=== PATIENT | female | born 1955 | race Caucasian/White ===

== ENCOUNTER 2018-04-30 12:43 | Day surgery (SDC) | payer MEDICARE ==
[~2018-04-30] VITALS: Ht 160 cm; Wt 101.4 kg
[~2018-04-30 12:43] MED LIST: CHOL10002; Esgic Tablet1 EACH; Inderal40 MG; MAGOXI400
--- NOTE | 2018-04-30 15:51 | NUR ---
04/30/18 1551 Jim Blank LATE ENTRY: PT BP DROPPED TO 82 SYSTOLIC WITH [address] KWOK NOT[address] DR[address] TAVAREZ ORDERS TO CONTINUE SEDATION WITH FENTANYL & VERSED. PT AIRWAY/GAG REFLEX VERY SENSTIVE, UNABLE TO START PROCEDURE. DR. QUIROGA CONSULTED. DR. QUIROGA AGREED TO PROVIDE SEDATION TO CONTINUE. PT PROVIDED CONSENT. DR. QUIROGA TOOK CASE OVER. PT VSS T/O THE REST OF THE PROCEDURE.
== END 2018-04-30 15:37 | disposition home or self-care (01) ==
LOC: ORSCSDS 12:43
PROVIDERS: Internal Medicine Gastroenterology
PROC: 0DB58ZX Excision of Esophagus, Via Natural or Artificial Opening Endoscopic, Diagnostic (ICD-10-PCS; principal; 2018-04-30 14:15)
PROC: 0D758ZZ Dilation of Esophagus, Via Natural or Artificial Opening Endoscopic (ICD-10-PCS; principal; 2018-04-30 14:15)
DX: R13.14 Dysphagia, pharyngoesophageal phase (principal); K21.9 Gastro-esophageal reflux disease without esophagitis; I10 Essential (primary) hypertension; G47.33 Obstructive sleep apnea (adult) (pediatric); E66.01 Morbid (severe) obesity due to excess calories; Z68.41 Body mass index [BMI] 40.0-44.9, adult; Z79.899 Other long term (current) drug therapy
CPT/HCPCS: 88305; J2250; J3010; J7120

== ENCOUNTER 2023-02-13 11:13 | Day surgery (SDC) | payer MEDICARE ==
[~2023-02-13] VITALS: Ht 160 cm; Wt 95.3 kg
--- NOTE | 2023-02-13 11:29 | NUR ---
NAUSEA/VOMITING FOLLOWING ANETHESIA
[2023-02-13] MEDS ORDERED: [UNRECOGNIZED DRUG - CODE] PO (11:32)
[2023-02-13] MEDS ORDERED: BUTALB-ACETAMI1 EAC5 PO (11:33)
--- NOTE | 2023-02-13 12:10 | NUR ---
02/13/23 1210 Christin Mccray TIME OUT TAKEN TO VERIFY CORRECT PT, SITE, PROCEEDURE AND ALLERGIES. PT ELECTED TO PROCEED WITH THE BLOCK PRIOR TO PROCEEDURE. RELAXING MEDICATION PROVIDED BY DR. RAMOS. VS STABLE THROUGHOUT. PT TOLERATED WELL
--- NOTE | 2023-02-13 12:38 | NUR ---
02/13/23 1238 Jim Blank ROPIVACAINE 0.5% 30ML MIXED AND VERIFIED W/EPI 0.15 ML. (1MG/ML) PER ORDER TO MAKE ROPIVACAINE 0.5% 1:200,000 FOR INJECTION AT OPSITE BY DR. SELF
[2023-02-13 13:29] VITALS: BP 145/68
--- NOTE | 2023-02-13 14:18 | NUR ---
02/13/23 1418 Oneyda Farr PATIENT UP TO BATHROOM PRIOR TO DISCHARGING HOME. VOIDED WITHOUT ANY DIFFICULTIES. PT DENIED PAIN OR NAUSEA THROUGHOUT RECOVERY. IMMEDIATELY PRIOR TO DISCHARGE STATED SHE HAS HAD A HEADACHE. HER AND REPORT THAT SHE IS SEEING A NEUROLOGIST FOR HER HEADACHES. NORMALLY TAKES TYLENOL FOR THE HEADACHES. ADVISED PATIENT THAT THE PAIN RX SENT IN BY DR SELF ALSO HAS TYLENOL IN IT SO TO MAKE SURE TO TAKE THE AMOUNT OF TYLENOL IN THE PAIN PILL INTO CONSIDERATION IF PLANNING TO TAKE TYLENOL FOR A HEADACHE. PT VERBALIZED UNDERSTANDING.
== END 2023-02-13 14:12 | disposition home or self-care (01) ==
LOC: ORSCSDS 11:13
PROVIDERS: Podiatrist Foot & Ankle Surgery
PROC: 0L8N0ZZ Division of Right Lower Leg Tendon, Open Approach (ICD-10-PCS; principal; 2023-02-13 12:45)
PROC: 0QBL0ZZ Excision of Right Tarsal, Open Approach (ICD-10-PCS; principal; 2023-02-13 12:45)
DX: M76.61 Achilles tendinitis, right leg (principal); I10 Essential (primary) hypertension; E11.9 Type 2 diabetes mellitus without complications; G47.33 Obstructive sleep apnea (adult) (pediatric); E66.9 Obesity, unspecified; Z68.37 Body mass index [BMI] 37.0-37.9, adult; Z79.899 Other long term (current) drug therapy
CPT/HCPCS: C1713; J0171; J1100; J2250; J2405; J2704; J2795; J3010

== ENCOUNTER 2023-04-10 12:17 | Day surgery (SDC) | payer MEDICARE ==
[~2023-04-10] VITALS: Ht 160 cm; Wt 95.6 kg
[~2023-04-10 12:17] MED LIST changes: +BUTALB-ACETAMI1 EAC5 PO; +[UNRECOGNIZED DRUG - CODE] PO
[2023-04-10 15:28] VITALS: BP 129/70
--- NOTE | 2023-04-10 15:30 | NUR ---
04/10/23 1530 Bre Gambino IV DC'D. CATH INTACT. PT TOLERATED WELL. GAUZE/COBAN IN PLACE
== END 2023-04-10 15:30 | disposition home or self-care (01) ==
LOC: ORSCSDS 12:17
PROVIDERS: Internal Medicine Gastroenterology
PROC: 0DBK8ZX Excision of Ascending Colon, Via Natural or Artificial Opening Endoscopic, Diagnostic (ICD-10-PCS; principal; 2023-04-10 13:45)
DX: Z12.11 Encounter for screening for malignant neoplasm of colon (principal); Z86.010 Personal history of colon polyps; D12.2 Benign neoplasm of ascending colon; K64.8 Other hemorrhoids; I10 Essential (primary) hypertension; K21.9 Gastro-esophageal reflux disease without esophagitis; K57.30 Diverticulosis of large intestine without perforation or abscess without bleeding; Z87.891 Personal history of nicotine dependence; Z68.37 Body mass index [BMI] 37.0-37.9, adult; Z79.899 Other long term (current) drug therapy
CPT/HCPCS: 88305; J2405; J2704; J7120

== ENCOUNTER 2024-02-06 10:37 | Emergency (ER) | payer MEDICARE ==
[~2024-02-06] VITALS: Ht 160 cm; Wt 99.8 kg
[2024-02-06] MEDS ORDERED: OLME5TAB PO (11:38)
[2024-02-06] MEDS ORDERED: PRED20 (11:39)
[2024-02-06 11:40] LABS: BASOPHILS ABSOLUTE AUTO 0.02 K/mm3 (0.00-0.23); BASOPHILS PERCENT AUTO 0 % (0-2); EOSINOPHILS ABSOLUTE AUTO 0.02 K/mm3 (0.00-0.68); EOSINOPHILS PERCENT AUTO 0 % (0-6); Hematocrit 44.2 % (33.0-51.0); Hemoglobin 14.8 g/dL (11.5-16.0); IMMATURE GRAN ABSOLUTE AUTO 0.05 K/mm3 (0.00-0.10); IMMATURE GRAN PERCENT AUTO 1 % (0-1); LYMPHOCYTES ABSOLUTE AUTO 1.27 K/mm3 (0.84-5.20); LYMPHOCYTES PERCENT AUTO 13 % (21-46); MONOCYTES ABSOLUTE AUTO 0.15 K/mm3 (0.16-1.47); MONOCYTES PERCENT AUTO 2 % (4-13); Mean Corpuscular HGB 29.9 pg (26.0-34.0); Mean Corpuscular HGB Conc 33.5 g/dL (31.5-36.5); Mean Corpuscular Volume 89 fL (80-100); Mean Platelet Volume 9.7 fL (9.1-12.4); NEUTROPHILS PERCENT AUTO 85 % (41-73); Platelet Count 291 K/mm3 (150-400); RDW Coefficient Variation 13.1 % (11.7-14.2); RDW Standard Deviation 42.8 fL (35.1-46.3); Red Blood Cell Count 4.95 M/mm3 (3.80-5.20); White Blood Cell Count 9.71 K/mm3 (4.00-11.30)
[2024-02-06 12:24] LABS: Albumin/Globulin Ratio 1.2 (0.8-1.8); Bilirubin, Total 0.3 mg/dL (0.1-1.0); Calcium, Blood 9.1 mg/dL (8.5-10.1); Creatinine, Blood 0.7 mg/dL (0.40-1.00); Globulin, Blood 3.4 g/dL (2.2-4.0); Potassium, Blood 4.6 mmol/L (3.5-5.5); Total Protein, Blood 7.4 g/dL (6.4-8.2)
[2024-02-06 12:30] VITALS: BP 178/92
[2024-02-06] MEDS ORDERED: OLME20 PO (12:39)
== END 2024-02-06 12:45 | disposition home or self-care (01) ==
LOC: ER 10:37
PROVIDERS: Physician Assistant
DX: I10 Essential (primary) hypertension (principal); Z87.891 Personal history of nicotine dependence; Z88.1 Allergy status to other antibiotic agents; Z88.6 Allergy status to analgesic agent; Z88.7 Allergy status to serum and vaccine; Z88.8 Allergy status to other drugs, medicaments and biological substances; Z79.52 Long term (current) use of systemic steroids; Z79.899 Other long term (current) drug therapy
CPT/HCPCS: 80053; 85025; 99283-25

== ENCOUNTER 2025-02-05 06:44 | Day surgery (SDC) | payer MEDICARE ==
[~2025-02-05] VITALS: Ht 160 cm; Wt 99.9 kg
[~2025-02-05 06:44] MED LIST changes: +Balanced Salt Epinephrine Irrigation Solution 500 mL IR SCH; +Moxifloxacin HCL 0.5 MG/0.1 ML 0.4MLSYR LEFTEYE SCH; +OLME20 PO; +OLME5TAB PO; +Ondansetron 4 MG SoluTab MM PRN; +PHENYLEPHRINE\\TROPICAMIDE\\TETRACAINE OPHTHALMIC DILATING SOLN LEFTEYE PRN; +PRED20; +Povidone-Iodine 450 DROP/30 ML Solution LEFTEYE SCH; +Povidone-Iodine 450 DROP/30 ML Solution ONE; +Tetracaine HCl/Pf 0.5% Opth Soln 4 ml ONE; +Triamcinolone Inj Susp 40 MG / ML 1ML Vial INJ SCH; +Triamcinolone Inj Susp 40 MG / ML 1ML Vial ONE
--- NOTE | 2025-02-05 07:00 | NUR ---
02/05/25 0700 Oneyda Farr PT REPORTS ANXIETY LEVEL 2/10 PRIOR TO ADMINISTRATION OF VALIUM 10MG PO AT 0658.
[2025-02-05] MEDS ORDERED: ITRACONAZOLE PO (07:03)
--- NOTE | 2025-02-05 08:02 | NUR ---
02/05/25 0802 Christin Mccray [id number] BP:130/74 HR:74 O2:97% RESP:16
[2025-02-05 08:18] VITALS: BP 128/97
== END 2025-02-05 08:35 | disposition home or self-care (01) ==
LOC: ORSCSDS 06:44
PROVIDERS: Ophthalmology
PROC: 08RK3JZ Replacement of Left Lens with Synthetic Substitute, Percutaneous Approach (ICD-10-PCS; principal; 2025-02-05 08:00)
DX: H25.812 Combined forms of age-related cataract, left eye (principal); I10 Essential (primary) hypertension; Z79.899 Other long term (current) drug therapy
CPT/HCPCS: A9270; J3301; V2632

== ENCOUNTER 2025-02-13 11:06 | Day surgery (SDC) | payer MEDICARE ==
[~2025-02-13] VITALS: Ht 160 cm; Wt 101.1 kg
[~2025-02-13 11:06] MED LIST changes: +ITRACONAZOLE PO; -Moxifloxacin HCL 0.5 MG/0.1 ML 0.4MLSYR LEFTEYE SCH; +Moxifloxacin HCL 0.5 MG/0.1 ML 0.4MLSYR RIGHTEYE SCH; -PHENYLEPHRINE\\TROPICAMIDE\\TETRACAINE OPHTHALMIC DILATING SOLN LEFTEYE PRN; +PHENYLEPHRINE\\TROPICAMIDE\\TETRACAINE OPHTHALMIC DILATING SOLN RIGHTEYE PRN; -Povidone-Iodine 450 DROP/30 ML Solution LEFTEYE SCH; +Povidone-Iodine 450 DROP/30 ML Solution RIGHTEYE SCH
[2025-02-13] MEDS ORDERED: OLME20 PO (11:31)
--- NOTE | 2025-02-13 11:54 | NUR ---
02/13/25 1154 Nissa Petersen VITALS AT 1152 BP: 139/67 P: 71 O2: 100% WITH 10 LITERS OF BLOW BY OXYGEN
[2025-02-13 12:07] VITALS: BP 142/67
== END 2025-02-13 12:21 | disposition home or self-care (01) ==
LOC: ORSCSDS 11:06
PROVIDERS: Ophthalmology
PROC: 08RJ3JZ Replacement of Right Lens with Synthetic Substitute, Percutaneous Approach (ICD-10-PCS; principal; 2025-02-13 12:30)
DX: H25.811 Combined forms of age-related cataract, right eye (principal); Z96.1 Presence of intraocular lens; I10 Essential (primary) hypertension; Z79.899 Other long term (current) drug therapy; Z87.891 Personal history of nicotine dependence
CPT/HCPCS: A9270; J3301; V2632